=== PATIENT | male | born 1985 | race Caucasian/White ===

== ENCOUNTER → 2017-01-24 | Outpatient (CLI) | payer BC ==
--- NOTE | 2017-01-24 08:15 | US ---
EXAMINATION TYPE: US abdomen complete DATE OF EXAM: 01/24/2017 COMPARISON: NONE CLINICAL HISTORY: R74.8 elevated liver enzymes. no complaints of pain EXAM MEASUREMENTS: Liver Length: 20.0 cm Gallbladder Wall: 0.2 cm CBD: 0.4 cm Spleen: 11.3 cm Right Kidney: 10.2 x 4.6 x 6.4 cm Left Kidney: 10.1 x 5.0 x 5.7 cm Some exam limitations due to overlying bowel gas. Pancreas: Obscured by bowel gas Liver: hepatomegaly, attenuating, coarse echopattern Gallbladder: wnl Evidence for sonographic Monterroso's sign: no CBD: wnl Spleen: wnl Right Kidney: wnl Left Kidney: wnl Upper IVC: wnl Abd Aorta: wnl The liver is mildly enlarged with probable underlying fatty hepatic infiltration. The intrahepatic po rtion of the IVC and proximal abdominal aorta are within normal limits. There is no evidence of chol elithiasis. Common bile duct is unremarkable. The visualized portions of the pancreas are homogenou s. The spleen is unremarkable. Kidneys are symmetric and free of hydronephrosis. No renal lesions are seen. IMPRESSION: 1. Hepatomegaly. 2. Fatty liver.
== END | disposition home or self-care (01) ==
LOC: RADUSWWP 07:35
PROVIDERS: ATTEND Pediatrics
DX: K76.0 Fatty (change of) liver, not elsewhere classified (principal); R16.0 Hepatomegaly, not elsewhere classified
CPT/HCPCS: 76700